=== PATIENT | male | born 1990 | race Two or more races ===

== ENCOUNTER 2018-06-15 09:46 | Emergency (ER) | payer SELFPAY ==
[~2018-06-15] VITALS: Ht 170.2 cm; Wt 70.1 kg
[2018-06-15 09:55] VITALS: BP 127/73
--- NOTE | 2018-06-15 10:42 | NUR ---
PT REPORTS INTERMITTENT YELLOW/WHITE DC OVER LAST 2 MONTHS WITH LAST EPISODE 2 DAYS AGO. MULTIPLE SEX PARTNERS.
[2018-06-15 10:51] LABS: CULTURE INDICATED? YES; MICROSCOPIC INDICATED
[2018-06-15] MEDS ORDERED: AZITHROMYCIN 500 MG TABLET PO ONE (11:00)
[2018-06-15] MEDS ORDERED: CEFTRIAXONE 250 MG IM ONE (11:00)
[2018-06-15 11:05] LABS: BASOPHILS # (AUTO) 0.02 x10^3/uL (0-0.1); BASOPHILS % (AUTO) 0 % (0-1); EOSINOPHILS # (AUTO) 0.08 x10^3/uL (0-0.4); EOSINOPHILS % (AUTO) 1 % (1-7); LYMPHOCYTES # (AUTO) 0.96 x10^3/uL (1-3.4); LYMPHOCYTES % (AUTO) 12 % (22-44); MD NO; MEAN CORPUSCULAR HEMOGLOBIN 31.3 pg (27.5-34.5); MEAN CORPUSCULAR HGB CONC 34.2 g/dL (33.2-36.2); MEAN CORPUSCULAR VOLUME 91.4 fL (81-97); MEAN PLATELET VOLUME 7.1 fL (7.4-10.4); MONOCYTES # (AUTO) 0.75 x10^3/uL (0.2-0.8); MONOCYTES % (AUTO) 9 % (2-9); NEUTROPHILS # (AUTO) 6.35 x10^3/uL (1.8-6.8); NEUTROPHILS % (AUTO) 78 % (42-75); PLATELET COUNT 353 x10^3/uL (130-400); RED BLOOD COUNT 4.49 x10^6/uL (4.38-5.82); RED CELL DISTRIBUTION WIDTH 12.6 % (9.4-14.8)
[2018-06-15 11:12] LABS: ALBUMIN 3.5 g/dL (3.4-5.0); ANION GAP 6 mmol/L (5-15); CALCIUM 8.7 mg/dL (8.5-10.1); CHLORIDE 101 mmol/L (98-107); CREATININE 1.25 mg/dL (0.7-1.3)
[2018-06-15] MEDS ORDERED: LIDOCAINE-MPF 1%, 2ML ONE (11:23)
[2018-06-15] MEDS ORDERED: CEFTRIAXONE 250 MG ONE (11:23)
[2018-06-15] MEDS ORDERED: AZITHROMYCIN 500 MG TABLET ONE (11:23)
== END 2018-06-15 12:18 | disposition home or self-care (01) ==
LOC: ED 12:00
DX: N30.00 Acute cystitis without hematuria (principal); N34.2 Other urethritis
CPT/HCPCS: 36415; 76870; 80048; 81001; 82040; 85025; 87077; 87086; 96372; 99284; J0696